=== PATIENT | male | born 1960 | race American Indian/Alaskan Native ===

== ENCOUNTER 2017-09-29 16:41 | Emergency (ER) | payer BC, OTHER ==
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
[2017-09-29] MEDS ORDERED: MOTRIN PO ONE (20:44)
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
[2017-09-29 22:53] VITALS: BP 118/76
== END 2017-09-29 22:53 | disposition home or self-care (01) ==
LOC: ED 16:41
DX: M62.838 Other muscle spasm (principal); M54.5 Low back pain; M19.90 Unspecified osteoarthritis, unspecified site; M51.36 Other intervertebral disc degeneration, lumbar region; V89.2XXA Person injured in unspecified motor-vehicle accident, traffic, initial encounter; Y93.89 Activity, other specified; Y99.8 Other external cause status; Y92.410 Unspecified street and highway as the place of occurrence of the external cause
CPT/HCPCS: 72040; 72100; 99283